=== PATIENT | female | born 1985 | race African-American/Black ===

== ENCOUNTER 2021-02-20 09:24 | Outpatient (CLI) | payer OTHER | END 2021-02-20 09:25 | disposition home or self-care (01) | LOC: CSHULT 09:24 | PROVIDERS: ATTEND Family Medicine | DX: O09.892 Supervision of other high risk pregnancies, second trimester (principal); Z3A.22 22 weeks gestation of pregnancy | CPT/HCPCS: 76805 ==

== ENCOUNTER 2021-06-17 11:22 | Inpatient (IN) | payer MEDICAID, OTHER, SELFPAY ==
[2021-06-26] MEDS: Lactated Ringer's 1,000 ML IV SCH ×3 (11:42→21:19)
[2021-06-26 12:26] VITALS: BMI 26.8
[2021-06-26] MEDS ORDERED: NS w/ Oxytocin 30 units 500 ML IV SCH ×2 (12:46)
[2021-06-26] MEDS ORDERED: Diphenoxylate HCl/Atropine Tablet PO PRN (12:46)
[2021-06-26] MEDS ORDERED: Acetaminophen 500 MG TAB PO PRN (12:46)
[2021-06-26] MEDS ORDERED: Butorphanol Tartrate 1 MG/ML VIAL SLOW IVP PRN (12:46)
[2021-06-26] MEDS ORDERED: Methylergonovine 0.2 MG/ML VIAL IM PRN (12:46)
[2021-06-26] MEDS ORDERED: NS w/ Oxytocin 30 units 500 ML IVPB SCH (12:46)
[2021-06-26] MEDS ORDERED: Ondansetron PF 4 MG/2 ML Vial IVP PRN (12:46)
[2021-06-26] MEDS ORDERED: Lidocaine 1% (PF) 30 ML VIAL SC PRN (12:46)
[2021-06-26] MEDS ORDERED: Carboprost 250 MCG/ML AMP IM PRN (12:46)
[2021-06-26] MEDS ORDERED: Misoprostol 200 MCG TAB PR PRN (12:46)
[2021-06-26] MEDS ORDERED: Ibuprofen 800 MG TAB PO PRN (12:46)
[2021-06-26] MEDS ORDERED: hydrALAZINE 20 MG/ML VIAL SLOW IVP PRN (12:46)
[2021-06-26] MEDS ORDERED: HYDROcodone/Acetaminophen 5/325 mg Tablet PO PRN (12:46)
[2021-06-26] MEDS ORDERED: Promethazine HCl 25 MG/ML VIAL IM PRN (12:46)
[2021-06-26] MEDS ORDERED: Misoprostol 100 MCG TAB ONE (12:54)
[2021-06-26 12:58] LABS: Mean Corpuscular HGB CONC 33.8 g/dL (32.0-36.0); Mean Corpuscular Hemoglobin 25.6 pg (27.0-33.0); Mean Corpuscular Volume 75.8 fl (81.6-98.3); Mean Platelet Volume 12.9 fl (7.4-10.4); Platelet Count 188 10x3/uL (150-450); RBC Distribution Width 13.5 % (11.5-14.5); Red Blood Cell (RBC) Count 5.46 10x6/uL (3.90-5.03); White Blood Cell (WBC) Count 14.5 10x3/uL (3.5-10.5)
[2021-06-26] MEDS: Misoprostol 100 MCG TAB VAG SCH ×2 (13:13→16:25)
[2021-06-26 13:27] LABS: Hep B Surf Ag Non-Reactive S/CO (NonReactive)
[2021-06-26 13:28] LABS: Syphilis Antibody Nonreactive (Nonreactive); Syphilis Antibody Index 0.16 S/CO (<1.00 Non-Reactive)
[2021-06-26 13:30] LABS: HBSAg Index 0.18 S/CO (0-0.99)
[2021-06-26 15:18] LABS: SARS-CoV-2 NAA Rapid Test Not Detected (NotDetected)
[2021-06-27] MEDS ORDERED: Dinoprostone 10 MG Suppository VAG SCH (12:30)
[2021-06-27] MEDS: Lactated Ringer's 1,000 ML IV SCH ×2 (12:33→15:45)
[2021-06-28] MEDS ORDERED: Terbutaline Sulfate 1 MG/ML VIAL ONE (04:24)
[2021-06-28] MEDS ORDERED: ceFAZolin 2 GM/Dextrose 50 ML IVPB ONE (07:01)
[2021-06-28] MEDS ORDERED: ePHEDrine Sulfate 50 MG/10 ML VIAL ONE (07:12)
[2021-06-28] MEDS ORDERED: Morphine PF 10 MG/10 ML VIAL ONE (07:12)
[2021-06-28] MEDS ORDERED: Fentanyl 100 MCG/2 ML VIAL ONE (07:12)
[2021-06-28] MEDS ORDERED: Esmolol 100 MG/10 ML VIAL ONE (07:28)
[2021-06-28] MEDS ORDERED: Midazolam HCl 2 mg/2 ml Vial ONE (07:33)
[2021-06-28] MEDS ORDERED: Ondansetron PF 4 MG/2 ML Vial ONE (07:46)
[2021-06-28] MEDS ORDERED: PHENYLEPHRINE-NS 100 MCG/ML 10 ML SYRINGE ONE (07:47)
[2021-06-28] MEDS ORDERED: Oxytocin 10 UNITS/ML VIAL ONE (07:47)
[2021-06-28] MEDS ORDERED: Phenylephrine 10 MG/ML VIAL ONE (07:47)
[2021-06-28] MEDS ORDERED: Promethazine HCl 25 MG SUPP PR PRN (08:16)
[2021-06-28] MEDS ORDERED: Hydrocerin (Eucerin) Cream 120 gm Jar TOP PRN (08:16)
[2021-06-28] MEDS ORDERED: Naloxone HCl 0.4 mg/ml Vial IVP PRN ×2 (08:16)
[2021-06-28] MEDS ORDERED: Fentanyl 100 MCG/2 ML VIAL SLOW IVP PRN (08:16)
[2021-06-28] MEDS ORDERED: Naloxone HCl 0.4 mg/ml Vial IV PRN (08:16)
[2021-06-28] MEDS ORDERED: Ondansetron PF 4 MG/2 ML Vial IVP PRN ×2 (08:16→21:09)
[2021-06-28] MEDS ORDERED: HYDROmorphone 2 MG/ML VIAL SLOW IVP PRN (08:16)
[2021-06-28] MEDS ORDERED: Meperidine HCl/PF 25 MG/ML VIAL SLOW IVP PRN (08:16)
[2021-06-28] MEDS ORDERED: diphenhydrAMINE 50 MG/ML VIAL IVP PRN (08:16)
[2021-06-28] MEDS ORDERED: Ondansetron HCl/PF 4 MG/2 ML Vial IVP PRN (08:16)
[2021-06-28] MEDS ORDERED: Promethazine HCl 25 MG/ML VIAL IM PRN ×2 (08:16→21:09)
[2021-06-28] MEDS ORDERED: Communication Order-Pharmacy FS SCH (08:30)
[2021-06-28] MEDS ORDERED: Meperidine HCl/PF 25 MG/ML VIAL ONE (10:27)
[2021-06-28] MEDS: Lactated Ringer's 1,000 ML IV SCH (13:00)
[2021-06-28] MEDS ORDERED: diphenhydrAMINE 25 MG CAP PO PRN (21:09)
[2021-06-28] MEDS ORDERED: Bisacodyl 10 MG SUPP PR PRN (21:09)
[2021-06-28] MEDS ORDERED: Meperidine HCl/PF 25 MG/ML VIAL IM PRN (21:09)
[2021-06-28] MEDS ORDERED: Lanolin Ointment 7 GM TUBE TOP PRN (21:09)
[2021-06-28] MEDS ORDERED: NS w/ Oxytocin 30 units 500 ML IV SCH (21:09)
[2021-06-28] MEDS ORDERED: Boostrix 0.5 ML (Tdap) VIAL IM ONE (21:09)
[2021-06-28] MEDS ORDERED: hydrALAZINE 20 MG/ML VIAL SLOW IVP PRN (21:09)
[2021-06-28] MEDS: HYDROcodone/Acetaminophen 5/325 mg Tablet PO PRN (23:16)
[2021-06-29] MEDS: Ferrous Sulfate 325 MG TAB PO SCH ×3 (03:27→21:34)
[2021-06-29] MEDS: Lactated Ringer's 1,000 ML IV SCH (03:27)
[2021-06-29] MEDS: Docusate 100 MG CAP PO SCH ×3 (03:27→21:34)
[2021-06-29] MEDS: HYDROcodone/Acetaminophen 5/325 mg Tablet PO PRN ×4 (04:34→21:36)
[2021-06-29] MEDS: Simethicone Chewable 80 MG TAB PO PRN ×2 (04:34→09:31)
[2021-06-29 05:44] LABS: Hemoglobin 10.4 g/dL (12.0-15.5); Mean Corpuscular HGB CONC 34.6 g/dL (32.0-36.0); Mean Corpuscular Hemoglobin 25.2 pg (27.0-33.0); Mean Corpuscular Volume 72.9 fl (81.6-98.3); Mean Platelet Volume 12.8 fl (7.4-10.4); Platelet Count 150 10x3/uL (150-450); RBC Distribution Width 13.2 % (11.5-14.5); Red Blood Cell (RBC) Count 4.13 10x6/uL (3.90-5.03); White Blood Cell (WBC) Count 11.7 10x3/uL (3.5-10.5)
[2021-06-29] MEDS: Misoprostol 100 MCG TAB VAG SCH (08:33)
[2021-06-29] MEDS: Prenatal Vitamin 1 TAB PO SCH (09:31)
[2021-06-30] MEDS: HYDROcodone/Acetaminophen 5/325 mg Tablet PO PRN ×4 (04:58→21:36)
[2021-06-30] MEDS: Ferrous Sulfate 325 MG TAB PO SCH ×2 (08:23→21:17)
[2021-06-30] MEDS: Prenatal Vitamin 1 TAB PO SCH (09:36)
[2021-06-30] MEDS: Simethicone Chewable 80 MG TAB PO PRN (09:36)
[2021-06-30] MEDS: Docusate 100 MG CAP PO SCH ×2 (09:36→21:17)
[2021-07-01] MEDS: HYDROcodone/Acetaminophen 5/325 mg Tablet PO PRN ×2 (04:34→15:07)
[2021-07-01 07:45] VITALS: BP 107/71; TEMP 98
[2021-07-01] MEDS: Docusate 100 MG CAP PO SCH (08:42)
[2021-07-01] MEDS: Prenatal Vitamin 1 TAB PO SCH (08:42)
[2021-07-01] MEDS: Ferrous Sulfate 325 MG TAB PO SCH (08:43)
== END 2021-07-01 18:10 | disposition home or self-care (01) | DRG 788 ==
LOC: CSHLD 06-26 10:50 → CSHPP 06-28 11:05
PROVIDERS: ADMIT Family Medicine; ATTEND Family Medicine
PROC: 3E0DXGC Introduction of Other Therapeutic Substance into Mouth and Pharynx, External Approach (ICD-10-PCS; principal; 2021-06-26)
PROC: 3E0P7VZ Introduction of Hormone into Female Reproductive, Via Natural or Artificial Opening (ICD-10-PCS; 2021-06-26)
PROC: 10D00Z1 Extraction of Products of Conception, Low, Open Approach (ICD-10-PCS; 2021-06-28)
DX: O48.0 Post-term pregnancy (principal); Z3A.41 41 weeks gestation of pregnancy; Z37.0 Single live birth; Z20.822 Contact with and (suspected) exposure to COVID-19; O76 Abnormality in fetal heart rate and rhythm complicating labor and delivery; O62.1 Secondary uterine inertia
CPT/HCPCS: 36415; 51702; 85027; 86780; 86850; 86900; 86901; 87340; 88307; J2175; J2250; J2274; J2370; J2405; J2590; J3010; J3105; J7120; U0002

== ENCOUNTER 2023-12-24 05:49 | Inpatient (IN) | payer MEDICAID, OTHER ==
[2023-12-24 06:15] VITALS: BMI 29.0
[2023-12-24] MEDS ORDERED: Ondansetron PF 4 MG/2 ML Vial IVP PRN ×3 (06:15→09:15)
[2023-12-24] MEDS ORDERED: Methylergonovine 0.2 MG/ML VIAL IM PRN (06:15)
[2023-12-24] MEDS: Lactated Ringer's 1,000 ML IV SCH (06:15)
[2023-12-24] MEDS ORDERED: Tranexamic Acid 1,000 MG/10 ML VIAL IVP PRN (06:15)
[2023-12-24] MEDS ORDERED: Bicitra 30 ML UDCUP PO PRN (06:15)
[2023-12-24] MEDS ORDERED: hydrALAZINE 20 MG/ML VIAL SLOW IVP PRN ×2 (06:15→12:58)
[2023-12-24] MEDS ORDERED: Diphenoxylate HCl/Atropine Tablet PO PRN (06:15)
[2023-12-24] MEDS ORDERED: Misoprostol 200 MCG TAB PR PRN (06:15)
[2023-12-24] MEDS ORDERED: Promethazine HCl 25 MG/ML VIAL IM PRN (06:15)
[2023-12-24] MEDS ORDERED: Carboprost 250 MCG/ML AMP IM PRN (06:15)
[2023-12-24 06:29] LABS: Hematocrit 34.9 % (34.9-44.5); Hemoglobin 12.3 g/dL (12.0-15.5); Mean Corpuscular HGB CONC 35.2 g/dL (32.0-36.0); Mean Corpuscular Hemoglobin 25.2 pg (27.0-33.0); Mean Corpuscular Volume 71.4 fL (81.6-98.3); Mean Platelet Volume 12.8 fL (7.4-10.4); Platelet Count 177 10x3/uL (150-450); RBC Distribution Width 14.2 % (11.5-14.5); Red Blood Cell (RBC) Count 4.89 10x6/uL (3.90-5.03); White Blood Cell (WBC) Count 11.7 10x3/uL (3.5-10.5)
[2023-12-24] MEDS: CEFAZOLIN 2 GM in Sodium Chloride 0.9% 100 ML IVPB SCH (06:33)
[2023-12-24] MEDS: Famotidine/PF 20 mg/2ml Vial SLOW IVP PRN (06:59)
[2023-12-24 07:00] LABS: HBsAg Index 0.18 S/CO (0-0.99); Hep B Surf Ag - L&D Non-Reactive S/CO (NonReactive)
[2023-12-24 07:01] LABS: Syphilis Antibody Nonreactive (Nonreactive); Syphilis Antibody Index 0.15 S/CO (<1.00 Non-Reactive)
[2023-12-24] MEDS ORDERED: Naloxone HCl 0.4 mg/ml Vial IV PRN (09:15)
[2023-12-24] MEDS ORDERED: fentaNYL 50 mcg/mL 1 mL Vial SLOW IVP PRN (09:15)
[2023-12-24] MEDS ORDERED: Naloxone HCl 0.4 mg/ml Vial IVP PRN ×2 (09:15)
[2023-12-24] MEDS ORDERED: diphenhydrAMINE 50 MG/ML VIAL IVP PRN (09:15)
[2023-12-24] MEDS ORDERED: Moisturizing Cream (Eucerin) 113 GM JAR TOP PRN (09:15)
[2023-12-24] MEDS ORDERED: Communication Order-Pharmacy FS SCH (09:15)
[2023-12-24] MEDS ORDERED: HYDROmorphone 0.5 MG/0.5 ML SYRINGE SLOW IVP PRN (09:15)
[2023-12-24] MEDS: Oxytocin 30 units/NS 500 ML 500 ML IV SCH (10:40)
[2023-12-24] MEDS: fentaNYL 50 mcg/mL 1 mL Vial ONE (10:50)
[2023-12-24] MEDS: Dexamethasone 4 mg/ml Vial ONE (10:50)
[2023-12-24] MEDS: Morphine PF 10 MG/10 ML VIAL ONE (10:50)
[2023-12-24] MEDS: Oxytocin 10 UNITS/ML VIAL ONE (10:51)
[2023-12-24] MEDS: PHENYLEPHRINE-NS 100 MCG/ML 10 ML SYRINGE ONE (10:51)
[2023-12-24] MEDS: Ondansetron PF 4 MG/2 ML Vial ONE (10:51)
[2023-12-24] MEDS: Meperidine HCl/PF 25 MG (1 mL) VIAL SLOW IVP PRN (10:52)
[2023-12-24] MEDS ORDERED: Lanolin Ointment 7 GM TUBE TOP PRN (12:58)
[2023-12-24] MEDS ORDERED: diphenhydrAMINE 25 MG CAP PO PRN (12:58)
[2023-12-24] MEDS: Docusate 100 MG CAP PO SCH ×2 (18:40→20:05)
[2023-12-24] MEDS: Boostrix 0.5 ML (Tdap) VIAL (>/=7 yrs of age) IM ONE (18:40)
[2023-12-24] MEDS: Prenatal Vitamin 1 TAB PO SCH (18:40)
[2023-12-24] MEDS: Ferrous Sulfate 325 MG TAB PO SCH (18:40)
[2023-12-24] MEDS: HYDROcodone/Acetaminophen 5/325 mg Tablet PO PRN (20:05)
[2023-12-24] MEDS: Ondansetron PF 4 MG/2 ML Vial IVP PRN (21:32)
[2023-12-24] MEDS: Simethicone Chewable 80 MG TAB PO PRN (21:38)
[2023-12-24] MEDS: Meperidine HCl/PF 25 MG (1 mL) VIAL IM PRN (23:11)
[2023-12-25 03:24] LABS: Hematocrit 32.5 % (34.9-44.5); Hemoglobin 11.3 g/dL (12.0-15.5); Mean Corpuscular HGB CONC 34.8 g/dL (32.0-36.0); Mean Corpuscular Hemoglobin 25.1 pg (27.0-33.0); Mean Corpuscular Volume 72.2 fL (81.6-98.3); Mean Platelet Volume 12.6 fL (7.4-10.4); Platelet Count 161 10x3/uL (150-450); RBC Distribution Width 13.9 % (11.5-14.5); White Blood Cell (WBC) Count 17.2 10x3/uL (3.5-10.5)
[2023-12-25] MEDS: Promethazine HCl 25 MG/ML VIAL IM PRN (04:38)
[2023-12-25] MEDS: Metoclopramide HCl 10 MG (2 mL) VIAL IVP SCH ×2 (05:58→17:12)
[2023-12-25] MEDS: Ferrous Sulfate 325 MG TAB PO SCH (08:00)
[2023-12-25] MEDS: Prenatal Vitamin 1 TAB PO SCH (11:38)
[2023-12-25] MEDS: Bisacodyl 10 MG SUPP PR PRN (14:06)
[2023-12-25] MEDS: Meclizine HCl 12.5 MG TAB PO SCH (17:12)
[2023-12-25] MEDS: Ondansetron PF 4 MG/2 ML Vial IVP SCH (17:13)
[2023-12-26] MEDS: Meperidine HCl/PF 25 MG (1 mL) VIAL IM PRN (01:50)
[2023-12-26] MEDS: HYDROcodone/Acetaminophen 5/325 mg Tablet PO PRN (14:36)
[2023-12-27] MEDS: Simethicone Chewable 80 MG TAB PO SCH (12:29)
[2023-12-28 07:53] VITALS: BP 114/75; TEMP 98.1
== END 2023-12-28 17:45 | disposition home or self-care (01) | DRG 788 ==
LOC: CSHLD 05:49 → CSHPP 11:15
PROVIDERS: ADMIT Family Medicine; ATTEND Family Medicine
PROC: 10D00Z1 Extraction of Products of Conception, Low, Open Approach (ICD-10-PCS; principal; 2023-12-24)
DX: O34.211 Maternal care for low transverse scar from previous cesarean delivery (principal); Z3A.39 39 weeks gestation of pregnancy; Z37.0 Single live birth; J45.909 Unspecified asthma, uncomplicated; O99.52 Diseases of the respiratory system complicating childbirth; Z79.82 Long term (current) use of aspirin; Z79.899 Other long term (current) drug therapy
CPT/HCPCS: 36415; 51702; 85027; 86780; 86850; 86900; 86901; 87340; C1889; J1100; J2175; J2274; J2405; J2550; J2590; J2765; J3010; J3490; J7120; S0028